=== PATIENT | male | born 1985 | race Caucasian/White ===

== ENCOUNTER 2018-09-22 16:22 | Emergency (ER) | payer MEDICAID ==
[~2018-09-22] VITALS: Ht 195.6 cm; Wt 134.0 kg
[2018-09-22 16:24] VITALS: BP 132/93
[2018-09-22] MEDS ORDERED: ACET-812 PO (16:58)
[2018-09-22] MEDS ORDERED: IBUP-1985 PO (16:58)
[2018-09-22] MEDS ORDERED: triamcinolone acetonide 40mg/ml inj IM ONE (17:00)
== END 2018-09-22 17:11 | disposition home or self-care (01) ==
LOC: ER 16:22
DX: M79.642 Pain in left hand (principal); R60.0 Localized edema; X58.XXXA Exposure to other specified factors, initial encounter; Y93.89 Activity, other specified; Y92.89 Other specified places as the place of occurrence of the external cause; Y99.8 Other external cause status
CPT/HCPCS: 73130; 96372; 99284; J3301

== ENCOUNTER 2020-01-19 19:00 | Emergency (ER) | payer MEDICAID ==
[~2020-01-19] VITALS: Ht 195.6 cm; Wt 125.0 kg
[~2020-01-19 19:00] MED LIST: ACET-812 PO; IBUP-1985 PO
[2020-01-19] MEDS ORDERED: ondansetron 4mg rapidly disintigrating tab PO ONE ×2 (19:25→21:00)
[2020-01-19 20:01] LABS: BASOPHILS % (AUTO) 0.3 % (0-1); EOSINOPHILS # (AUTO) 0.1 X10'3 (0-0.9); EOSINOPHILS % (AUTO) 0.9 % (0-6); HEMATOCRIT 45.4 % (42.0-52.0); HEMOGLOBIN 15.8 g/dl (14.0-17.9); LYMPHOCYTES # (AUTO) 0.6 X10'3 (1.1-4.8); LYMPHOCYTES % (AUTO) 6.6 % (21-51); MEAN CORPUSCULAR HEMOGLOBIN 31.6 PG (27.0-31.0); MEAN CORPUSCULAR HGB CONC 34.9 g/dL (33.0-36.5); MEAN CORPUSCULAR VOLUME 90.4 FL (78-98); MEAN PLATELET VOLUME 7.7 FL (7.4-10.4); MONOCYTES # (AUTO) 1.1 X10'3 (0-0.9); MONOCYTES % (AUTO) 11.9 % (2-12); NEUTROPHILS # (AUTO) 7.5 X10'3 (1.8-7.7); NEUTROPHILS % (AUTO) 80.3 % (42-75); PLATELET COUNT 252 X10'3 (140-440); RED BLOOD COUNT 5.02 X10'6 (4.70-6.10); RED CELL DISTRIBUTION WIDTH 13.7 % (11.5-14.5); WHITE BLOOD COUNT 9.4 X10'3 (4.5-11.0)
[2020-01-19 20:08] LABS: ALANINE AMINOTRANSFERASE 31 U/L (12-78); ALBUMIN 4.2 G/DL (3.4-5.0); ALBUMIN/GLOBULIN RATIO 1.2 (1.1-1.5); ALKALINE PHOSPHATASE 58 IU/L (46-116); ANION GAP 9 (8-16); ASPARTATE AMINO TRANSFERASE 24 U/L (10-37); BILIRUBIN,TOTAL 0.4 MG/DL (0.1-1.0); BLOOD UREA NITROGEN 11 MG/DL (7-18); BUN/CREATININE RATIO 12.4 (5.4-32.0); CHLORIDE 104 MMOL/L (99-107); CREATININE 0.89 MG/DL (0.60-1.10); GLUCOSE 121 MG/DL (70-104); POTASSIUM 3.5 MMOL/L (3.5-5.1); SODIUM 137 MMOL/L (135-145); TOTAL CARBON DIOXIDE 23.6 MMOL/L (24-32); TOTAL PROTEIN 7.8 G/DL (6.4-8.2); eGFR > 90 ML/MIN
[2020-01-19] MEDS ORDERED: oseltamivir phos 75mg capsule PO ONE (20:50)
[2020-01-19] MEDS ORDERED: TAM75C PO (20:52)
[2020-01-19] MEDS ORDERED: BENZ-16 PO (20:52)
[2020-01-19] MEDS ORDERED: ONDA4TAB6 PO (20:55)
[2020-01-19 21:11] VITALS: BP 139/90
== END 2020-01-19 21:13 | disposition home or self-care (01) ==
LOC: ER 19:01
DX: J11.1 Influenza due to unidentified influenza virus with other respiratory manifestations (principal); F17.200 Nicotine dependence, unspecified, uncomplicated; Z72.89 Other problems related to lifestyle; Z79.899 Other long term (current) drug therapy
CPT/HCPCS: 36415; 71045; 80053; 84145; 85025; 87502; 87503; 93005; 99285